=== PATIENT | male | born 1965 | race Caucasian/White ===

== ENCOUNTER 2020-01-23 03:58 | Emergency (ER) | payer BC ==
[~2020-01-23] VITALS: Ht 180.3 cm; Wt 102.3 kg
[~2020-01-23 03:58] MED LIST: no home medications
--- NOTE | 2020-01-23 04:08 | PHYS DOC ---
Past Medical History Past Medical History: No Pertinent History Past Surgical History: No Surgical History Smoking Status: Never Smoker Alcohol Use: Rarely Drug Use: None Adult General Chief Complaint Chief Complaint: LOWER BACK PAIN HPI HPI Patient is a 54 year old male who present to ER today for evaluation of right side abdominal pain that radiated to his right buttock area that started at 7 PM yesterday. Patient tried to stay home but the pain did not go away, so he decided come here for evaluation. Patient has a history of kidney stone, he had one episode last year. Patient denies any fever, no urinating blood, no nausea vomiting. Patient described pain as a sharp stabbing pain. Patient also has history of chronic lower back pain. Patient denied any bowel or bladder incontinence. Review of Systems Review of Systems Constitutional: Denies fever or chills [] Eyes: Denies change in visual acuity, redness, or eye pain [] HENT: Denies nasal congestion or sore throat [] Respiratory: Denies cough or shortness of breath [] Cardiovascular: No additional information not addressed in HPI [] GI: Positive for right side abdominal pain, NO nausea, vomiting, bloody stools or diarrhea [] : Denies dysuria or hematuria [] Musculoskeletal: Denies back pain or joint pain [] Integument: Denies rash or skin lesions [] Neurologic: Denies headache, focal weakness or sensory changes [] Endocrine: Denies polyuria or polydipsia [] All other systems were reviewed and found to be within normal limits, except as documented in this note. Current Medications Current Medications Current Medications Medications (Trade) Dose Ordered Sig/Myriam Start Time Stop Time Status Last Admin Dose Admin Fentanyl Citrate (Fentanyl 2ml Vial) 100 mcg STK-MED ONCE 01/23/20 05:26 01/23/20 05:26 DC Ketorolac Tromethamine (Toradol 30mg Vial) 30 mg 1X ONCE 01/23/20 04:30 01/23/20 04:31 DC 01/23/20 04:39 30 MG Morphine Sulfate (Morphine Sulfate) 4 mg 1X ONCE 01/23/20 04:30 01/23/20 04:31 DC Ondansetron HCl (Zofran) 4 mg 1X ONCE 01/23/20 04:30 01/23/20 04:31 DC 01/23/20 04:39 4 MG Sodium Chloride 1,000 ml @ 1,000 mls/hr 1X ONCE 01/23/20 04:30 01/23/20 05:29 DC 01/23/20 04:40 1,000 MLS/HR Tamsulosin HCl (Flomax) 0.4 mg 1X ONCE 01/23/20 04:30 01/23/20 04:31 DC 01/23/20 04:44 0.4 MG Allergies Allergies Allergies Coded Allergies Type Severity Reaction Last Updated Verified No Known Drug Allergies 06/11/18 No Physical Exam Physical Exam Constitutional: Well developed, well nourished, no acute distress, non-toxic appearance. [] HENT: Normocephalic, atraumatic, bilateral external ears normal, oropharynx moist, no oral exudates, nose normal. [] Eyes: PERRLA, EOMI, conjunctiva normal, no discharge. [] Neck: Normal range of motion, no tenderness, supple, no stridor. [] Cardiovascular:Heart rate regular rhythm, no murmur [] Lungs & Thorax: Bilateral breath sounds clear to auscultation [] Abdomen: Bowel sounds normal, soft, There is tenderness to palpation at right lower paraspinus muscle area, NO REBOUND, NO GUARDING, no masses, no pulsatile masses. [] Skin: Warm, dry, no erythema, no rash. [] Back: No tenderness, right CVA tenderness. There is tenderness to palpation at right buttock area. Extremities: No tenderness, no cyanosis, no clubbing, ROM intact, no edema. [] Neurologic: Alert and oriented X 3, normal motor function, normal sensory function, no focal deficits noted. [] Psychologic: Affect normal, judgement normal, mood normal. [] Current Patient Data Vital Signs Vital Signs Date Time Temp Pulse Resp B/P (MAP) Pulse Ox O2 Delivery O2 Flow Rate FiO2 01/23/20 05:25 18 97 Room Air Lab Values Laboratory Tests Test 01/23/20 04:07 01/23/20 04:12 Urine Collection Type Unknown Urine Color Yellow Urine Clarity Clear Urine pH 5.0 Urine Specific [place] 1.025 Urine Protein Negative mg/dL (NEG-TRACE) Urine Glucose (UA) Negative mg/dL (NEG) Urine Ketones (Stick) Negative mg/dL (NEG) Urine Blood Negative (NEG) Urine Nitrite Negative (NEG) Urine Bilirubin Negative (NEG) Urine Urobilinogen Dipstick 0.2 mg/dL (0.2 mg/dL) Urine Leukocyte Esterase Negative (NEG) Urine RBC 0 /HPF (0-2) Urine WBC 1-4 /HPF (0-4) Urine Squamous Epithelial Cells Many /LPF Urine Amorphous Sediment Present /HPF Urine Bacteria 0 /HPF (0-FEW) Urine Mucus Mod /LPF White Blood Count 7.5 x10^3/uL (4.0-11.0) Red Blood Count 4.99 x10^6/uL (4.30-5.70) Hemoglobin 16.1 g/dL (13.0-17.5) Hematocrit 46.4 % (39.0-53.0) Mean Corpuscular Volume 93 fL (79-100) Mean Corpuscular Hemoglobin 32 pg (25-35) Mean Corpuscular Hemoglobin Concent 35 g/dL (31-37) Red Cell Distribution Width 13.4 % (11.5-14.5) Platelet Count 219 x10^3/uL (140-400) Neutrophils (%) (Auto) 55 % (31-73) Lymphocytes (%) (Auto) 33 % (24-48) Monocytes (%) (Auto) 9 % (0-9) Eosinophils (%) (Auto) 3 % (0-3) Basophils (%) (Auto) 1 % (0-3) Neutrophils # (Auto) 4.2 x10^3/uL (1.8-7.7) Lymphocytes # (Auto) 2.5 x10^3/uL (1.0-4.8) Monocytes # (Auto) 0.7 x10^3/uL (0.0-1.1) Eosinophils # (Auto) 0.2 x10^3/uL (0.0-0.7) Basophils # (Auto) 0.1 x10^3/uL (0.0-0.2) Sodium Level 140 mmol/L (136-145) Potassium Level 3.5 mmol/L (3.5-5.1) Chloride Level 105 mmol/L (98-107) Carbon Dioxide Level 30 mmol/L (21-32) Anion Gap 5 (6-14) L Blood Urea Nitrogen 20 mg/dL (8-26) Creatinine 1.0 mg/dL (0.7-1.3) Estimated GFR (Cockcroft-Gault) 78.5 BUN/Creatinine Ratio 20 (6-20) Glucose Level 119 mg/dL (70-99) H Calcium Level 8.6 mg/dL (8.5-10.1) Total Bilirubin 0.4 mg/dL (0.2-1.0) Aspartate Amino Transferase (AST) 26 U/L (15-37) Alanine Aminotransferase (ALT) 24 U/L (16-63) Alkaline Phosphatase 82 U/L (46-116) Total Protein 7.2 g/dL (6.4-8.2) Albumin 4.0 g/dL (3.4-5.0) Albumin/Globulin Ratio 1.3 (1.0-1.7) Lipase 106 U/L (73-393) Laboratory Tests 01/23/20 04:12 Laboratory Tests 01/23/20 04:12 EKG EKG [] Radiology/Procedures Radiology/Procedures [][facility] [address] [place] [address] IMAGING REPORT Signed PATIENT: JEAN CHO ACCOUNT: [id number] : 1965 LOCATION: ER AGE: 54 SEX: M EXAM STATUS: REG ER ORD. PHYSICIAN: ANA NEUMANN DO REASON: right flank pain,hx of kidney stone PROCEDURE: CT ABDOMEN PELVIS WO CONTRAST CT abdomen pelvis without contrast. HISTORY: Right flank pain, history of kidney stone CT scan the abdomen pelvis was done without contrast lung bases are clear. A liver lesion is not identified. There is no calcified gallstone. Spleen and adrenal glands are normal. Pancreas is normal. There is an incidental cyst in the right kidney. There is no renal calculus. There are phleboliths in the pelvis. A definite ureteral calculus is not identified. Appendix is normal. Bowel pattern is normal. There is no free air or ascites. There is spinal stenosis at L3-4 and L4-5. There is an limbus vertebra or an old injury at L2-3 anteriorly. IMPRESSION: 1. No renal or ureteral calculus noted, multiple phleboliths in the pelvis make evaluation difficult.. 2. Incidental right renal cyst. 3. Normal appendix. 4. No gallstones or gallbladder wall thickening. PQRS Compliance Statement: One or more of the following individualized dose reduction techniques were utilized for this examination: 1. Automated exposure control 2. Adjustment of the mA and/or kV according to patient size 3. Use of iterative reconstruction technique Electronically signed by: Abdiaziz Nolan MD (01/23/2020 4:48 AM) [id number] DICTATED and SIGNED BY: ABDIAZIZ NOLAN MD DATE: 01/23/20 0448 Course & Med Decision Making Course & Med Decision Making Pertinent Labs and Imaging studies reviewed. (See chart for details) [] Dragon Disclaimer Dragon Disclaimer This electronic medical record was generated, in whole or in part, using a voice recognition dictation system. Departure Departure Impression: Primary Impression: Back pain Disposition: HOME, SELF-CARE Condition: STABLE Referrals: NO PCP (PCP) follow up with your doctor for outpatient evaluation with MRI OF YOUR LUMBAR S PINE NEXT WEEK. Patient Instructions: Back Pain, Adult Additional Instructions: Thank you for visiting our Emergency Department. We appreciate you trusting us with your care. If any additional problems come up don't hesitate to return to visit us. Please follow up with your primary care provider so they can plan additional care if needed and know about the problem that you had. If symptoms worsen come back to the Emergency Department. Any concerning symptoms that start such as chest pain, shortness of air, weakness or numbness on one side of the body, running high fevers or any other concerning symptoms return to the ER. Scripts Hydrocodone/Apap 5-325 (NORCO 5-325 TABLET) 1 Each Tablet 1 TAB PO PRN Q6HRS PRN for PAIN, #12 TAB 0 Refills Prov: ANA NEUMANN DO 01/23/20 Naproxen Sodium (ANAPROX DS) 550 Mg Tablet 1 TAB PO BID PRN for PAIN for 15 Days, #30 TAB 0 Refills Prov: ANA NEUMANN DO 01/23/20 ANA NEUMANN DO Jan 23, 2020 04:08
[2020-01-23 04:13] LABS: BILIRUBIN,URINE NEGATIVE (NEG); CLARITY,URINE CLEAR; COLOR,URINE YELLOW; NITRITE,URINE NEGATIVE (NEG); PROTEIN,URINE NEGATIVE (NEG-TRACE); UROBILINOGEN,URINE 0.2 mg/dL (0.2 mg/dL)
[2020-01-23 04:20] LABS: BACTERIA,URINE 0 /HPF (0-FEW); RBC,URINE 0 /HPF (0-2); SQUAMOUS EPITHELIAL CELL,UR MANY /LPF
[2020-01-23 04:20] LABS: BASO # 0.1 x10^3/uL (0.0-0.2); BASO % 1 % (0-3); EOS # 0.2 x10^3/uL (0.0-0.7); EOS % 3 % (0-3); HEMATOCRIT 46.4 % (39.0-53.0); HEMOGLOBIN 16.1 g/dL (13.0-17.5); LYMPH # 2.5 x10^3/uL (1.0-4.8); LYMPH % 33 % (24-48); MEAN CORPUSCULAR HEMOGLOBIN 32 pg (25-35); MEAN CORPUSCULAR HGB CONC 35 g/dL (31-37); MEAN CORPUSCULAR VOLUME 93 fL (79-100); MONO # 0.7 x10^3/uL (0.0-1.1); MONO % 9 % (0-9); NEUT # 4.2 x10^3/uL (1.8-7.7); NEUT % 55 % (31-73); PLATELET COUNT 219 x10^3/uL (140-400); RED BLOOD COUNT 4.99 x10^6/uL (4.30-5.70); RED CELL DISTRIBUTION WIDTH 13.4 % (11.5-14.5); WHITE BLOOD COUNT 7.5 x10^3/uL (4.0-11.0)
[2020-01-23 04:21] LABS: AMORPHOUS SEDIMENT,UR PRESENT /HPF
[2020-01-23] MEDS ORDERED: IV NORMAL SALINE 1000ML BAG 1,000 ML IV ONE (04:30)
[2020-01-23] MEDS ORDERED: TAMSULOSIN 0.4 MG CAP.ER.24H. PO ONE (04:30)
[2020-01-23] MEDS ORDERED: KETOROLAC 30 MG/ML VIAL. IVP ONE (04:30)
[2020-01-23] MEDS ORDERED: MORPHINE SULFATE 4 MG/ML VIAL. IV ONE (04:30)
[2020-01-23] MEDS ORDERED: ONDANSETRON PF 4 MG/2 ML VIAL. IVP ONE (04:30)
[2020-01-23 04:38] LABS: CALCIUM 8.6 mg/dL (8.5-10.1); GFR 78.5; POTASSIUM 3.5 mmol/L (3.5-5.1)
[2020-01-23 04:42] LABS: ALBUMIN/GLOBULIN RATIO 1.3 (1.0-1.7); TOTAL BILIRUBIN 0.4 mg/dL (0.2-1.0); TOTAL PROTEIN 7.2 g/dL (6.4-8.2)
--- NOTE | 2020-01-23 04:50 | RAD ---
CT abdomen pelvis without contrast. HISTORY: Right flank pain, history of kidney stone CT scan the abdomen pelvis was done without contrast lung bases are clear. A liver lesion is not identified. There is no calcified gallstone. Spleen and adrenal glands are normal. Pancreas is normal. There is an incidental cyst in the right kidney. There is no renal calculus. There are phleboliths in the pelvis. A definite ureteral calculus is not identified. Appendix is normal. Bowel pattern is normal. There is no free air or ascites. There is spinal stenosis at L3-4 and L4-5. There is an limbus vertebra or an old injury at L2-3 anteriorly. IMPRESSION: 1. No renal or ureteral calculus noted, multiple phleboliths in the pelvis make evaluation difficult.. 2. Incidental right renal cyst. 3. Normal appendix. 4. No gallstones or gallbladder wall thickening. PQRS Compliance Statement: One or more of the following individualized dose reduction techniques were utilized for this examination: 1. Automated exposure control 2. Adjustment of the mA and/or kV according to patient size 3. Use of iterative reconstruction technique Electronically signed by: Abdiaziz Rojo MD (01/23/2020 4:48 AM) [id number]
[2020-01-23] MEDS ORDERED: fentaNYL PF VIAL 100 MCG/2 ML VIAL IVP ONE (05:00)
[2020-01-23] MEDS ORDERED: fentaNYL PF VIAL 100 MCG/2 ML VIAL ONE (05:26)
[2020-01-23] MEDS ORDERED: HYDR-3164 PO (05:48)
[2020-01-23] MEDS ORDERED: NAPR-682 PO (05:48)
[2020-01-23 06:00] VITALS: BP 102/63
== END 2020-01-23 06:00 | disposition home or self-care (01) ==
LOC: ER 03:58
DX: G89.29 Other chronic pain (principal); M54.5 Low back pain; R10.31 Right lower quadrant pain; Z87.442 Personal history of urinary calculi; Z79.899 Other long term (current) drug therapy
CPT/HCPCS: 36415; 74176; 80053; 81001; 83690; 85025; 96374; 96375; 99284; J1885; J2405; J3010; J7030